=== PATIENT | female | born 1955 | race Caucasian/White ===

== ENCOUNTER 2024-09-13 00:26 | Emergency (ER) | payer OTHER ==
[~2024-09-13] VITALS: Ht 160 cm; Wt 76.0 kg
[2024-09-13 00:45] VITALS: O2SAT 98
[2024-09-13] MEDS: KETOROLAC 15MG/ML VIAL IM ONE (01:37)
[2024-09-13] MEDS: LIDOCAINE 5% PATCH TOP SCH (03:04)
[2024-09-13 03:05] VITALS: BP 141/61; PULSE 64; RESP 17; TEMP 36.7; O2SAT 98
[2024-09-13] MEDS ORDERED: NAPR-1176 MT (03:07)
[2024-09-13] MEDS ORDERED: LIDO-53 TP (03:07)
== END 2024-09-13 03:28 | disposition home or self-care (01) ==
LOC: ER 00:26
DX: M25.511 Pain in right shoulder (principal); M19.90 Unspecified osteoarthritis, unspecified site; I10 Essential (primary) hypertension; E03.9 Hypothyroidism, unspecified; Z79.1 Long term (current) use of non-steroidal anti-inflammatories (NSAID); Z79.899 Other long term (current) drug therapy
CPT/HCPCS: 99284; 73030; 73080; 96372; J1885; A4565

== ENCOUNTER 2025-04-19 14:31 | Emergency (ER) | payer OTHER ==
[~2025-04-19] VITALS: Ht 167.6 cm; Wt 105.0 kg
[~2025-04-19 14:31] MED LIST: LIDO-53 TP; NAPR-1176 MT
[2025-04-19 14:48] VITALS: O2SAT 96
[2025-04-19] MEDS ORDERED: KETOROLAC 30MG/ML VIAL IM ONE (16:30)
[2025-04-19 17:39] LABS: BASOPHILS % 0.6 % (0.0-2.0); EOSINOPHILS % 0.0 % (0.0-5.0); HEMATOCRIT. 38.5 % (36.0-48.0); HEMOGLOBIN. 12.9 g/dL (12.0-16.0); LYMPHOCYTES % 21.6 % (20.0-50.0); MEAN PLATELET VOLUME 7.6 fl (7.4-10.4); MONOCYTES % 7.9 % (2.0-8.0); NEUTROPHILS % 69.9 % (40.0-76.0); PLATELET 240 x1000/uL (130-400); RED BLOOD CELL COUNT 3.90 mill/uL (4.2-5.4); RED CELL DISTRIBUTION WIDTH 12.6 % (11.6-14.6)
[2025-04-19 17:55] LABS: CREATININE 0.6 mg/dL (0.6-1.0); UREA NITROGEN BLOOD 10 mg/dL (9-23)
[2025-04-19 17:56] LABS: PROTEIN TOTAL 6.9 g/dL (6.0-8.3)
[2025-04-19 17:57] LABS: ASPARTATE AMINOTRANSFERASE 21 IU/L (<34); BILIRUBIN DIRECT 0.1 mg/dL (<=3.0); BILIRUBIN TOTAL 0.5 mg/dL (0.1-1.0)
[2025-04-19 18:05] VITALS: BP 148/68; PULSE 70; RESP 18; TEMP 36.8; O2SAT 96
[2025-04-19] MEDS: KETOROLAC 30MG/ML VIAL IM NR (18:05)
[2025-04-19] MEDS ORDERED: KETO10TA2 MT (18:15)
[2025-04-19] MEDS ORDERED: CYCL5TAB3 MT (18:15)
== END 2025-04-19 19:09 | disposition home or self-care (01) ==
LOC: ER 14:59
DX: M25.552 Pain in left hip (principal); R10.22 Pelvic and perineal pain left side; R11.0 Nausea; I10 Essential (primary) hypertension; E03.9 Hypothyroidism, unspecified; M19.90 Unspecified osteoarthritis, unspecified site; Z79.1 Long term (current) use of non-steroidal anti-inflammatories (NSAID); Z98.890 Other specified postprocedural states
CPT/HCPCS: 99285; 74176; 80076; 80048; 85025; 36415; 96372; J1885